=== PATIENT | female | born 1950 | race Caucasian/White ===

== ENCOUNTER → 2021-07-03 10:52 | Outpatient (BNVA) | payer MEDICARE, SELFPAY | PROVIDERS: PCP Nurse Practitioner Gerontology; Visit Provider Nurse Practitioner Family | DX: B02.29 Other postherpetic nervous system involvement (principal); M79.7 Fibromyalgia; R25.1 Tremor, unspecified | CPT/HCPCS: 99202 ==

== ENCOUNTER → 2021-08-07 14:17 | Outpatient (BNVA) | payer MEDICARE, SELFPAY | PROVIDERS: PCP Nurse Practitioner Gerontology; Visit Provider Nurse Practitioner Family | DX: R25.1 Tremor, unspecified (principal); B02.29 Other postherpetic nervous system involvement | CPT/HCPCS: 99212 ==

== ENCOUNTER → 2021-11-09 13:56 | Outpatient (BNVA) | payer MEDICARE, SELFPAY | PROVIDERS: PCP Nurse Practitioner Gerontology; Visit Provider Nurse Practitioner Family | DX: R51.9 Headache, unspecified (principal); B02.29 Other postherpetic nervous system involvement; E78.5 Hyperlipidemia, unspecified; Z79.899 Other long term (current) drug therapy | CPT/HCPCS: 99212 ==

== ENCOUNTER 2021-11-19 13:56 | Outpatient (REF) | payer MEDICARE, SELFPAY ==
[2021-11-19 14:26] LABS: MANUAL DIFF FLAG NO
[2021-11-19 14:39] LABS: Basophils Absolute Auto 0.1 X10*3/uL (0.0-0.2); Basophils Percent Auto 0.8 % (0-2); Eosinophils Absolute Auto 0.2 X10*3/uL (0.0-0.4); Eosinophils Percent Auto 2.3 % (0-4); Hemoglobin 15.1 g/dl (12.0-16.0); Lymphocytes Absolute Auto 2.3 X10*3/uL (1.2-4.9); Lymphocytes Percent Auto 31.2 % (20-40); Mean Corpuscular HGB Conc 32.8 g/dl (31.0-35.0); Mean Corpuscular Hemoglobin 29.9 pg (27.0-33.0); Mean Corpuscular Volume 91.1 fL (80.0-98.0); Mean Platelet Volume 10.6 fL (9.4-12.3); Monocytes Absolute Auto 0.6 X10*3/uL (0.1-1.2); Monocytes Percent Auto 7.6 % (2-11); Neutrophils Absolute Auto 4.4 x10*3/uL (2.0-8.3); Neutrophils Percent Auto 58.1 % (45-73); Platelet Count 258 X10*3/uL (160-400); Red Blood Count 5.05 X10*6/uL (4.20-5.50); White Blood Count 7.5 X10*3/uL (4.8-10.8)
[2021-11-19 15:36] LABS: Erythrocyte Sedimentation Rate 13 MM/HR (0-20)
[2021-11-19 15:46] LABS: Alanine Aminotransferase 28 U/L (0-31); Albumin Level 4.3 g/dL (3.5-5.0); Alkaline Phosphatase 85 U/L (39-117); Anion Gap 17 (12-20); Aspartate Amino Transferase 28 U/L (5-31); Bilirubin Total 0.7 mg/dL (0.0-1.0); Blood Urea Nitrogen 11 mg/dL (9-16); Calcium 9.6 mg/dL (8.4-10.2); Carbon Dioxide 25 mmol/L (22-29); Chloride 102 mmol/L (96-108); Estimated Glomerular Filt Rate 46; Glucose Random 84 mg/dL (60-115); Sodium 139 mmol/L (135-145); Total Protein 7.2 g/dL (6.5-8.0)
[2021-11-21 14:17] LABS: CRP High Sensitivity 1.8 mg/L
== END 2021-11-19 13:57 | disposition home or self-care (01) ==
LOC: HO.LAB 13:56
PROVIDERS: Visit Provider Nurse Practitioner Family
DX: E78.5 Hyperlipidemia, unspecified (principal); R51.9 Headache, unspecified; B02.29 Other postherpetic nervous system involvement
CPT/HCPCS: 36415; 80053; 85025; 85652; 86141

== ENCOUNTER 2023-03-10 13:44 | Outpatient (AMB) | payer MEDICARE, SELFPAY ==
--- NOTE | 2023-03-10 13:48 | MHC.OFFVIS ---
Intake Vital Signs 03/10/23 13:50 Height 5 ft 3 in Weight 153 lb 2 oz BMI 27.1 BP 118/74 Blood Pressure Location Rt brachial Position Sitting Pulse 98 Pulse Source Pulse Oximeter Pulse Oximetry (%) 99 Oxygen Delivery Method Room Air Intake Visit Reasons: f/u for postherpetic Neuralgia-Confirmed Intake Note: Patient presents for prosthetic neuralgia. my legs and feet mainly but in the last past year I've been getting vertigo . Allergies codeine Allergy (Unknown, Verified 03/10/23 13:51) Gastrointestinal Upset furosemide [Lasix] Allergy (Unknown, Verified 03/10/23 13:51) Anaphylaxis Medication List - Last Reconciled 03/10/23 by LESTER Wells alendronate 70 mg PO QWEEK azelaic acid 15% 1 appl topical BID calcium carbonate-vitamin D2 600 mg calcium- 200 unit tabs PO cetirizine 10 mg PO DAILY lidocaine 5% 1 appl topical TID PRN 30 days lorazepam 1 mg PO BEDTIME PRN nortriptyline 50 mg PO BEDTIME nystatin-triamcinolone 100,000-0.1 unit/g-% 1 appl topical DAILY pantoprazole 40 mg PO DAILY pravastatin 20 mg PO DAILY HPI HPI Comments History of Present Illness Details 73-yr-old female presents for new concern of BLE pain/numbness and vertigo. 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 She was recently advsed to start Eliquis but has not started yet. Pt states she has had vertigo on and off for years. However, during the [place] in Sep, she had increased bothersome vertigo. The vertigo has subsided some, but she can still be prone to not right in space dizziness which can come when just sitting. She can have some tinnitus. Denies ear pain, ear infections. She also reports worsening BLE thighs through feet discomfort and numbness. She can feel the ground when she is walking. Her legs can feel weak when she has to pull herself up. The previous postherpetic neuralgia has resolved- although she can still feel where the rash was in her posterior right hamstring region. She has a BUE tremor, notes it has increased over the years. Can make some tasks more difficult. [facility] Medical History (Updated 03/10/23 @ 22:02 by LESTER Wells) GERD (gastroesophageal reflux disease) Depression HLD (hyperlipidemia) Carpal tunnel syndrome Dupuytren contracture Duodenal ulcer Chronic narrow angle glaucoma Raynauds syndrome Fibromyalgia Boucher syndrome Uterine cancer Surgical History History of hysterectomy for cancer History of nasal surgery Family History Father CAD (coronary artery disease) Mother No problems noted. Social History Household Members: Family Alcohol intake: never Patient Tobacco Use Status: Former Tobacco user Review of Systems Const All systems reviewed & are unremarkable except as noted in HPI and below Physical Exam Vital Signs: Last Vital Signs Pulse 98 03/10/23 13:50 BP 118/74 03/10/23 13:50 Pulse Ox 99 03/10/23 13:50 Oxygen Delivery Method Room Air 03/10/23 13:50 BMI result Body Mass Index 27.1 Const General: cooperative and no acute distress Orientation/consciousness: patient oriented x3 HEENT Head: Yes normocephalic Resp Effort & Inspection: normal respiratory effort and able to speak in complete sentences Neuro Other: LUE rest and BUE L > R postural tremor. Mild LUE tone Softer, hoarse voice General: patient oriented x3, gait normal and CN's II-XI intact bilaterally Cognition (Neuro): normal cognition Motor exam (neuro): 5/5 motor strength present throughout Deep tendon reflexes (DTR's): Right patellar reflex intensity grade: 2+ and Left patellar reflex intensity grade: 2+ Psych Appearance: grossly normal Mental Status: mental status grossly normal Speech and movement: Normal speech and movement present Affect: normal affect Attitude: cooperative Thought process: Normal thought process present Thought content: Normal thought content present Insight: Good insight present (Psych) Judgement: Good judgement present (Psych) Assessment & Plan Assessment & Plan (1) Paresthesia of bilateral legs: Code(s): R20.2 - Paresthesia of skin (2) Postherpetic neuralgia: Comment: Lumbar region to posterior left upper-mid thigh s/p shingles in Jan 2021. Code(s): B02.29 - Other postherpetic nervous system involvement (3) Vertigo: Code(s): R42 - Dizziness and giddiness (4) Intracranial arachnoid cyst: Code(s): G93.0 - Cerebral cysts Plan Pt advised to undergo BLE EMG/NCS Pt advised to undergo f/u brain MRI w/wo to assess status of left CP angle arachnoid cyst and worsening vertigo. Labs for common etiologies. Monitor tremor. f/u upon review of above and in 3 months in clinic or sooner prn Orders: Orders MR head/brain wo/w con Today G93.0 - Cerebral cysts, R42 - Dizziness and giddiness Vitamin B12 and Folate Today R20.2 - Paresthesia of skin, R42 - Dizziness and giddiness, R53.1 - Weakness Creatine Kinase Total Today R20.2 - Paresthesia of skin, R42 - Dizziness and giddiness, R53.1 - Weakness NE electromyogram (EMG) Today B02.29 - Other postherpetic nervous system involvement, R20.2 - Paresthesia of skin, R53.1 - Weakness Complete Blood Count Auto Diff Today R20.2 - Paresthesia of skin, R42 - Dizziness and giddiness, R53.1 - Weakness Comprehensive Met. Panel Today R20.2 - Paresthesia of skin, R42 - Dizziness and giddiness, R53.1 - Weakness Coding Level of Care Code Est Pt Level 4 (37224) Diagnoses Paresthesia of bilateral legs R20.2 Postherpetic neuralgia B02.29 Vertigo R42 Intracranial arachnoid cyst G93.0
[2023-03-10 13:50] VITALS: BP 118/74; PULSE 98; O2SAT 99; BMI 27.1
== END 2023-03-10 14:56 | disposition home or self-care (01) ==
PROVIDERS: PCP Nurse Practitioner Gerontology; Visit Provider Nurse Practitioner Family
DX: R20.2 Paresthesia of skin (principal); B02.29 Other postherpetic nervous system involvement; R42 Dizziness and giddiness; G93.0 Cerebral cysts
CPT/HCPCS: 99214

== ENCOUNTER → 2023-03-10 13:44 | Outpatient (BNVA) | payer MEDICARE, SELFPAY | PROVIDERS: PCP Nurse Practitioner Gerontology; Visit Provider Nurse Practitioner Family | DX: B02.29 Other postherpetic nervous system involvement (principal); R20.2 Paresthesia of skin; R42 Dizziness and giddiness; G93.0 Cerebral cysts | CPT/HCPCS: 99212 ==

== ENCOUNTER 2023-04-22 14:14 | Outpatient (REF) | payer MEDICARE, SELFPAY ==
--- NOTE | 2023-04-22 14:18 | EMG_ITS ---
Chief complaint: Chronic numbness on feet and toes, dating even prior to onset of post herpetic neuralgia Reason for referral: Evaluate for neuropathy Referred by: Nicole Zuniga CROP DUSTER Procedure done: Bilateral lower extremity NCS/EMG Precautions and/or limitations: On Eliquis - had to avoid deep muscles such as paraspinals The limb temperature was monitored continuously and remained between 32-36 degrees C during the performance of the NCS. Nerve Conduction Studies Anti Sensory Summary Table ?Stim Site NR Onset (ms) Norm Onset (ms) Peak (ms) Norm Peak (ms) O-P Amp (?V) Norm O-P Amp Site1 Site2 Delta-0 (ms) Dist (cm) Kenji (m/s) Norm Kenji (m/s) Left Sural Anti Sensory (Lat Mall) Calf ? 2.5 3.5 <4.0 13.1 >5.0 Calf Lat Mall 2.5 14.0 56 Right Sural Anti Sensory (Lat Mall) Calf ? 3.1 3.8 <4.0 6.2 >5.0 Calf Lat Mall 3.1 14.0 45 Motor Summary Table ?Stim Site NR Onset (ms) Norm Onset (ms) O-P Amp (mV) Norm O-P Amp iAmp (mV) Amp (1st) (%) Site1 Site2 Delta-0 (ms) Dist (cm) Kenji (m/s) Norm Kenji (m/s) Right Peroneal Motor (Ext Dig Brev) Ankle ? 3.6 <4.0 3.3 >2.5 3.8 100.0 Ankle Ext Dig Brev 3.6 0.0 B Fib ? 10.5 2.9 3.2 87.9 B Fib Ankle 6.9 31.0 45 >40 Poplt ? 11.6 2.9 3.3 87.9 Poplt B Fib 1.1 5.0 45 >40 Left Tibial Motor (Abd Alonso Brev) Ankle ? 4.3 <5 6.0 >2.5 7.7 100.0 Ankle Abd Alonso Brev 4.3 0.0 Knee ? 12.4 5.4 7.8 90.0 Knee Ankle 8.1 34.0 42 >40 Right Tibial Motor (Abd Alonso Brev) Ankle ? 4.1 <5 6.7 >2.5 8.2 100.0 Ankle Abd Alonso Brev 4.1 0.0 Knee ? 12.9 5.9 7.7 88.1 Knee Ankle 8.8 40.0 45 >40 EMG ?Side Muscle Nerve Root Ins Act Fibs Psw Amp Dur Poly Recrt Int Pat Comment Right AbdHallucis MedPlantar S1-2 Nml Nml Nml Nml Nml 0 Nml Complete Right AntTibialis Dp Br Peron L4-5 Nml Nml Nml Nml Nml 0 Nml Complete Right MedGastroc Tibial S1-2 Nml Nml Nml Nml Nml 0 Nml Complete Right VastusMed Femoral L2-4 Nml Nml Nml Nml Nml 0 Nml Complete Left AbdHallucis MedPlantar S1-2 Nml Nml Nml Nml Nml 0 Nml Complete Left AntTibialis Dp Br Peron L4-5 Nml Nml Nml Nml Nml 0 Nml Complete Left MedGastroc Tibial S1-2 Nml Nml Nml Nml Nml 0 Nml Complete Left VastusMed Femoral L2-4 Nml Nml Nml Nml Nml 0 Nml Complete Left RectFemoris Femoral L2-4 Nml Nml Nml Nml Nml 0 Nml Complete Right RectFemoris Femoral L2-4 Nml Nml Nml Nml Nml 0 Nml Complete FINDINGS: All motor and sensory nerves tested showed normal latencies, amplitudes and conduction velocities. Concentric needle EMG was performed in selected muscles of the bilateral lower extremity. Study did not reveal signs of electric abnormalities as shown in the table below. IMPRESSION: 1. This is a normal study. 2. There is no electrodiagnostic evidence for peroneal neuropathy, tibial neuropathy, lumbosacral plexopathy, lumbar radiculopathy, or peripheral neuropathy. Thank you for your kind referral. Maggie Artis MD, BEV Board Certified, [place] [employer] and [employer] (ABPMR) Board Certified, [place] Board [employer] Electro[employer]ostic [employer] (ABEM) CODIN [id number] x 2 MTDD
== END 2023-04-22 14:15 | disposition home or self-care (01) ==
LOC: HO.NEURO 14:14
PROVIDERS: PCP Nurse Practitioner Gerontology; Visit Provider Nurse Practitioner Family
DX: R20.2 Paresthesia of skin (principal); B02.29 Other postherpetic nervous system involvement; R53.1 Weakness
CPT/HCPCS: 95886; 95909

== ENCOUNTER → 2023-04-22 14:18 | Outpatient (BNV) | payer MEDICARE, SELFPAY | PROVIDERS: PCP Nurse Practitioner Gerontology; Visit Provider Physical Medicine & Rehabilitation | DX: G57.91 Unspecified mononeuropathy of right lower limb (principal); G57.92 Unspecified mononeuropathy of left lower limb | CPT/HCPCS: 95886; 95909 ==

== ENCOUNTER 2023-07-14 14:23 | Outpatient (AMB) | payer MEDICARE, SELFPAY ==
[2023-07-14 14:27] VITALS: BP 130/78; PULSE 90; O2SAT 9
--- NOTE | 2023-07-14 14:27 | A.OFFVIS_ITS ---
Vital Signs 07/14/23 14:27 BP 130/78 Blood Pressure Location Rt brachial Position Sitting Pulse 90 Pulse Source Pulse Oximeter Pulse Oximetry (%) 9 L Oxygen Delivery Method Room Air Intake Visit Reasons: 4 mo f/u Postherpetic Neuralgia- LVM Intake Note: Patient presents for 4 month follow up neuralgia. Allergies codeine Allergy (Unknown, Verified 07/14/23 14:29) Gastrointestinal Upset furosemide [Lasix] Allergy (Unknown, Verified 07/14/23 14:29) Anaphylaxis Medication List - Last Reconciled 07/14/23 by LESTER Wells alendronate 70 mg PO QWEEK apixaban (Eliquis) 2.5 mg PO BID azelaic acid 15% 1 appl topical BID calcium carbonate-vitamin D2 600 mg calcium- 200 unit tabs PO cetirizine 10 mg PO DAILY lidocaine 5% 1 appl topical TID PRN 30 days lorazepam 1 mg PO BEDTIME PRN nortriptyline 50 mg PO BEDTIME nystatin-triamcinolone 100,000-0.1 unit/g-% 1 appl topical DAILY pantoprazole 40 mg PO DAILY pravastatin 20 mg PO DAILY HPI Comments Details: 73-yr-old female presents for f/u visit. Patient wants to confirm that we are aware that she has had recent diagnoses of splenic artery infarct, factor V Leiden mutation. She was seen by [facility] hematology, who advised patient to resume Eliquis, in to be evaluated for AFib. Patient has no known history of AFib. She was also seen by Nephrology, Dr. Stuart, for elevated creatinine, states she was diagnosed with CKD stage 3. Patient today reminds us that she has history of Raynaud's, carpal tunnel repair, Dupuytren's repair. Interval workup: 04/22/23: BLE EMG/NCS: Normal study. There is no electrodiagnostic evidence for peroneal neuropathy, tibial neuropathy, lumbosacral plexopathy, lumbar radiculopathy, or peripheral neuropathy. 04/05/23, Brain w/wo: IMPRESSION: 1. No acute intracranial pathology. 2. There is a stable collection of CSF in the left CP angle. A similar but smaller collection is seen in the right CP angle. These may represent small arachnoid cysts or could simply represent volume loss. She states her hands and toes get numb, sometimes tingling, and her legs hurt, more noticeable at night. Worse in the cold weather. Fingertips and toes turn red and then purple, especially when it is cold. Denies urge to move at night. Hands do feel weak, prone to dropping things. Occasionally has sharp pain in he right cheek. Occasionally brief head spinning dizziness w/wo head movement. If it occurred when walking, she will need to garb onto something. Occasional brief tinnitus. Occasional mild headache that responds to OTC analgesic. [facility] Medical History (Updated 07/14/23 @ 15:33 by LESTER Wells) GERD (gastroesophageal reflux disease) Depression HLD (hyperlipidemia) Carpal tunnel syndrome Dupuytren contracture Duodenal ulcer Chronic narrow angle glaucoma Raynauds syndrome Fibromyalgia Boucher syndrome Uterine cancer Surgical History History of hysterectomy for cancer History of nasal surgery Family History Father CAD (coronary artery disease) Mother No problems noted. Social History Household Members: Family Alcohol intake: never Patient Tobacco Use Status: Former Tobacco user Review of Systems Const All systems reviewed & are unremarkable except as noted in HPI and below Physical Exam Vital Signs: Last Vital Signs Pulse 90 07/14/23 14:27 BP 130/78 07/14/23 14:27 Pulse Ox 9 L 07/14/23 14:27 Oxygen Delivery Method Room Air 07/14/23 14:27 Const General: cooperative and no acute distress Orientation/consciousness: patient oriented x3 HEENT Head: Yes normocephalic Resp Effort & Inspection: normal respiratory effort and able to speak in complete sentences Neuro Other: Mild left upper extremity postural tremor General: patient oriented x3, gait normal and CN's II-XI intact bilaterally Cognition (Neuro): normal cognition Motor exam (neuro): 5/5 motor strength present throughout Extrem Other: Bilateral hands and feet coolness to touch, mild discoloration, slow capillary refill. Psych Appearance: grossly normal Mental Status: mental status grossly normal Speech and movement: Clear speech present Affect: normal affect Attitude: cooperative Thought process: Normal thought process present Thought content: Normal thought content present Insight: Good insight present (Psych) Judgement: Good judgement present (Psych) Assessment & Plan Assessment & Plan (1) Raynauds syndrome: Code(s): I73.00 - Raynaud's syndrome without gangrene Category: Medical (2) Injury of splenic artery: Comment: splenic artery infarct Code(s): S35.299A - Unspecified injury of branches of celiac and mesenteric artery, initial encounter Category: Medical (3) Vertigo: Code(s): R42 - Dizziness and giddiness Category: Medical (4) Intracranial arachnoid cyst: Code(s): G93.0 - Cerebral cysts Category: Medical (5) Postherpetic neuralgia: Comment: Lumbar region to posterior left upper-mid thigh s/p shingles in Jan 2021. Code(s): B02.29 - Other postherpetic nervous system involvement Category: Medical (6) Tremor: Code(s): R25.1 - Tremor, unspecified Category: Medical Plan Reviewed recent PCP and Hematology notes. Will take the liberty of referring patient for Cardiology consultation at [facility] to evaluate patient for underlying asymptomatic AFib. In the meantime, continue on Eliquis. Reviewed BLE EMG/NCS: Normal study. Trial nifedipine ER 30 mg daily, in hopes this improves Raynaud symptoms, which may alleviate her hand and foot discomfort his recent EMG did not show any neuropathy. Advised to monitor for orthostatic lightheadedness. Patient against advised to have labs done for B12 and folate. Reviewed Brain MRI w/wo report and images: Stable collection of CSF in the left CP angle. A similar but smaller collection is seen in the right CP angle. Likely small arachnoid cysts or could simply represent volume loss. Monitor dizziness, headache and tinnitus clinically. If these worsen, consider follow-up brain MRI and consider neurosurgeon referral. Monitor tremor clinically. Orders: Referrals Cardiology Referral D68.51 - Activated protein C resistance, I73.00 - Raynaud's syndrome without gangrene, S35.299A - Unspecified injury of branches of celiac and mesenteric artery, initial encounter Medications: New nifedipine ER 30 mg PO DAILY 30 days 30 tabs 3RF Scribe Plan - Not visible on output: Reviewed possible medication side effects, including but not limited to drowsiness, dizziness.
== END 2023-07-14 15:32 | disposition home or self-care (01) ==
PROVIDERS: PCP Nurse Practitioner Gerontology; Visit Provider Nurse Practitioner Family
DX: I73.00 Raynaud's syndrome without gangrene (principal); S35.299A Unspecified injury of branches of celiac and mesenteric artery, initial encounter; R42 Dizziness and giddiness; G93.0 Cerebral cysts; B02.29 Other postherpetic nervous system involvement; R25.1 Tremor, unspecified
CPT/HCPCS: 99214

== ENCOUNTER 2023-07-14 15:35 | Outpatient (REF) | payer MEDICARE, SELFPAY ==
[2023-07-14 17:19] LABS: MANUAL DIFF FLAG NO
[2023-07-14 17:33] LABS: Basophils Absolute Auto 0.1 X10*3/uL (0.0-0.2); Basophils Percent Auto 0.6 % (0-2); Eosinophils Absolute Auto 0.2 X10*3/uL (0.0-0.4); Eosinophils Percent Auto 2.4 % (0-4); Hematocrit 45.9 % (37.0-47.0); Hemoglobin 15.4 g/dl (12.0-16.0); Imm Gran Abs Auto 0.02 X10*3/uL (0.00-0.03); Imm Gran Pct Auto 0.2 % (0.0-0.4); Lymphocytes Absolute Auto 2.8 X10*3/uL (1.2-4.9); Lymphocytes Percent Auto 31.8 % (20-40); Mean Corpuscular HGB Conc 33.6 g/dl (31.0-35.0); Mean Corpuscular Hemoglobin 30.9 pg (27.0-33.0); Monocytes Absolute Auto 0.7 X10*3/uL (0.1-1.2); Monocytes Percent Auto 8.4 % (2-11); Neutrophils Absolute Auto 4.9 x10*3/uL (2.0-8.3); Neutrophils Percent Auto 56.6 % (45-73); Platelet Count 244 X10*3/uL (160-400); Red Blood Count 4.99 X10*6/uL (4.20-5.50); Red Cell Distribution Width 14.2 % (11.0-16.0); White Blood Count 8.7 X10*3/uL (4.8-10.8)
[2023-07-14 17:36] LABS: Alanine Aminotransferase 36 U/L (0-31); Albumin Level 4.3 g/dL (3.5-5.0); Alkaline Phosphatase 78 U/L (39-117); Anion Gap 12 (12-20); Aspartate Amino Transferase 29 U/L (5-31); Bilirubin Total 0.6 mg/dL (0.0-1.0); Blood Urea Nitrogen 17 mg/dL (9-16); Calcium 10.2 mg/dL (8.4-10.2); Carbon Dioxide 27 mmol/L (22-29); Chloride 107 mmol/L (96-108); Estimated Glomerular Filt Rate 43; Glucose Random 96 mg/dL (60-115); Potassium 4.4 mmol/L (3.3-5.1); Sodium 142 mmol/L (135-145); Total Protein 7.9 g/dL (6.5-8.0)
[2023-07-14 18:26] LABS: Folate 13.6 ng/mL (> or = 4.0); Vitamin B12 789 pg/mL (200-900)
== END 2023-07-14 15:36 | disposition home or self-care (01) ==
LOC: HO.HKASLDS 15:35
PROVIDERS: Visit Provider Nurse Practitioner Family
DX: R20.2 Paresthesia of skin (principal); R53.1 Weakness; R42 Dizziness and giddiness; D68.51 Activated protein C resistance
CPT/HCPCS: 36415; 80053; 82550; 82607; 82746; 85025; 99212

== ENCOUNTER 2024-01-18 14:21 | Outpatient (AMB) | payer MEDICARE, SELFPAY ==
--- NOTE | 2024-01-18 14:23 | MHC.OFFVIS ---
Vital Signs 01/18/24 14:25 Height 5 ft 3 in Weight 153 lb BMI 27.1 BP 138/70 Blood Pressure Location Rt brachial Position Sitting Intake Visit Reasons: Follow up Postherpetic Neuralgia Intake Note: Patient presents for follow up neuralgia. patient wants to discuss with you other options. Allergies codeine Allergy (Unknown, Verified 01/18/24 14:26) Gastrointestinal Upset furosemide [Lasix] Allergy (Unknown, Verified 01/18/24 14:26) Anaphylaxis Medication List - Last Reconciled 01/18/24 by LESTER Wells alendronate 70 mg PO QWEEK apixaban (Eliquis) 2.5 mg PO BID azelaic acid 15% 1 appl topical BID calcium carbonate-vitamin D2 600 mg calcium- 200 unit tabs PO cetirizine 10 mg PO DAILY lidocaine 5% 1 appl topical TID PRN 30 days lorazepam 1 mg PO BEDTIME PRN nifedipine ER 30 mg PO DAILY 30 days nortriptyline 50 mg PO BEDTIME nystatin-triamcinolone 100,000-0.1 unit/g-% 1 appl topical DAILY pantoprazole 40 mg PO DAILY pravastatin 20 mg PO DAILY HPI Comments Details: 73-yr-old female presents for f/u visit. Pt reports she was recently started on prednisone for a URI. She states nephrology, Dr. Stuart, has dx'd w/ CKD St 3A- thus he has stopped her nifedipindine, pantoprazole, and reduced her alendronate dose. Has had an increase in acid reflux s/s- now using pepto-bismal instead of the pantoprazole for her GERD s/s. Patient wants to confirm that we are aware that she has had recent diagnoses of splenic artery infarct, factor V Leiden mutation. She was seen by [facility] hematology, who advised patient to resume Eliquis, in to be evaluated for AFib. Patient has no known history of AFib. She was also seen by Nephrology, Dr. Stuart, for elevated creatinine, states she was diagnosed with CKD stage 3. Patient today reminds us that she has history of Raynaud's, carpal tunnel repair, Dupuytren's repair. She does not think the nifedipine was very helpful. She states she has leg and foot/toe cramps at night. Her feet can feel like they are on fire/burning. She states her hands and now feet (was toes) get numb and tingling. Fingertips and toes turn red and then purple, especially when it is cold. She is noticing restless and creepy crawling sensation in he legs- happens all the time. Legs are usually worse when in cold weather. Hands do feel weak, prone to dropping things. May use Tylenol rpn at times for the foot pain. Massaging he rlegs helps best. No recent sharp pain in he right cheek. Not as dizzy but careful not to move to fast, as it make her feel off-balance. Occasional brief tinnitus. Occasional mild headache that responds to OTC analgesic. Previous workup: 04/22/23: BLE EMG/NCS: Normal study. There is no electrodiagnostic evidence for peroneal neuropathy, tibial neuropathy, lumbosacral plexopathy, lumbar radiculopathy, or peripheral neuropathy. 04/05/23, Brain w/wo: IMPRESSION: 1. No acute intracranial pathology. 2. There is a stable collection of CSF in the left CP angle. A similar but smaller collection is seen in the right CP angle. These may represent small arachnoid cysts or could simply represent volume loss. [facility] Medical History GERD (gastroesophageal reflux disease) Depression HLD (hyperlipidemia) Carpal tunnel syndrome Dupuytren contracture Duodenal ulcer Chronic narrow angle glaucoma Raynauds syndrome Fibromyalgia Boucher syndrome Uterine cancer Surgical History History of hysterectomy for cancer History of nasal surgery Family History Father CAD (coronary artery disease) Mother No problems noted. Social History Household Members: Family Alcohol intake: never Patient Tobacco Use Status: Former Tobacco user Physical Exam Vital Signs: Last Vital Signs BP 138/70 01/18/24 14:25 BMI result Body Mass Index 27.1 Const General: cooperative and no acute distress Orientation/consciousness: patient oriented x3 HEENT Head: Yes normocephalic Resp Effort & Inspection: normal respiratory effort and able to speak in complete sentences Neuro Other: Mild left upper extremity postural tremor General: patient oriented x3, gait normal and CN's II-XI intact bilaterally Cognition (Neuro): normal cognition Motor exam (neuro): 5/5 motor strength present throughout Psych Appearance: grossly normal Mental Status: mental status grossly normal Speech and movement: Clear speech present Affect: normal affect Assessment & Plan Assessment & Plan (1) Raynauds syndrome: Code(s): I73.00 - Raynaud's syndrome without gangrene Category: Medical (2) Vertigo: Code(s): R42 - Dizziness and giddiness Category: Medical (3) Tremor: Code(s): R25.1 - Tremor, unspecified Category: Medical (4) Restless leg syndrome: Code(s): G25.81 - Restless legs syndrome Category: Medical (5) Paresthesia of bilateral legs: Code(s): R20.2 - Paresthesia of skin Category: Medical Plan Advised she may try OTC Pepcid for gastritis but once s/s better to slowly wean off. Take prednisone course for URI w/ food to prevent exacerbation of gastritis/GERD s/s. Pt would like to hold on trying yanelis medication at this time. Reviewed conservative OZTZC tretaments for BLE restless leg and paresthesia s/s- compression boots, compression socks- such as hiking/running socks, RLS/neuropathy creams/lotions, stretching prior to bedtime. Previous BLE EMG/NCS: Normal study. Pt has stopped nifedipine ER 30 mg daily- per nephrology, was not very effective. Patient against advised to have labs done for B12 and folate. Brain MRI w/wo report and images: Stable collection of CSF in the left CP angle. A similar but smaller collection is seen in the right CP angle. Likely small arachnoid cysts or could simply represent volume loss. Monitor dizziness, headache and tinnitus clinically. If these worsen, consider follow-up brain MRI and consider neurosurgeon referral. Monitor tremor clinically. Medications: Discontinued nifedipine ER Discontinued Reason: Doctor's Order 30 mg PO DAILY 30 days 30 tabs 3RF Coding Level of Care Code Est Pt Level 4 (23892) Diagnoses Raynauds syndrome I73.00 Vertigo R42 Tremor R25.1 Restless leg syndrome G25.81 Paresthesia of bilateral legs R20.2
[2024-01-18 14:25] VITALS: BP 138/70; BMI 27.1
== END 2024-01-18 15:28 | disposition home or self-care (01) ==
PROVIDERS: PCP Nurse Practitioner Gerontology; Visit Provider Nurse Practitioner Family
DX: I73.00 Raynaud's syndrome without gangrene (principal); R42 Dizziness and giddiness; R25.1 Tremor, unspecified; G25.81 Restless legs syndrome; R20.2 Paresthesia of skin
CPT/HCPCS: 99214

== ENCOUNTER → 2024-01-18 14:21 | Outpatient (BNVA) | payer MEDICARE, SELFPAY | PROVIDERS: PCP Nurse Practitioner Gerontology; Visit Provider Nurse Practitioner Family | DX: I73.00 Raynaud's syndrome without gangrene (principal); R25.1 Tremor, unspecified; R42 Dizziness and giddiness; R20.2 Paresthesia of skin; G25.81 Restless legs syndrome | CPT/HCPCS: 99212 ==

== ENCOUNTER 2024-08-06 14:11 | Outpatient (AMB) | payer MEDICARE, SELFPAY ==
--- OUTSIDE RECORDS SUMMARY | 2024-08-06 14:26 | XMS_ITS | Clinical Summary ---
Author Organization [facility] Address [address] [address] Phone Care Team Providers Care Upholstery Parts Sorter Name Role Phone Cheryl Mccain NP Primary Care Provider [phone] Allergies Active Allergy Reactions Criticality Noted Date Comments Codeine 06/08/2023 Furosemide 06/08/2023 (LASIX) Sulfa Antibiotics 06/08/2023 Medications alendronate (FOSAMAX) 70 MG tablet Take 70 mg by mouth every 7 (seven) days Take in the morning with a full glass of water, on an empty stomach, and do not take anything else by mouth or lie down for the next 30 min. Active AZELAIC ACID EX Apply 1 application. topically in the morning and 1 application. in the evening. After skin is thoroughly washed and patted dry, gently but thoroughly massage a thin film of azelaic acid cream into the affected area twice daily, in the morning and evening. 15%. Active calcium carbonate (TUMS) 500 MG chewable tablet Chew 1 tablet 1 (one) time each day Active cetirizine (ZyrTEC) 10 MG tablet Take 10 mg by mouth 1 (one) time each day Active apixaban (Eliquis) 2.5 MG tablet Take 2.5 mg by mouth in the morning and 2.5 mg in the evening. 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 [address] [place] [phone] Doe Sommer MD Stage 3a chronic kidney disease (HCC) (Primary Dx); Boucher syndrome; Factor V Leiden mutation (HCC); Anticoagulant therapy; Osteoporosis 06/05/2024 Orders Only [facility] [address] [phone] Doe Sommer MD Stage 3a chronic kidney disease (HCC); Boucher syndrome; Factor V Leiden mutation (HCC); Anticoagulant therapy from Last 3 Months Family History Medical History Relation Comments Cancer Brother 1 lung Cancer Brother 2 skin Hypertension Father Cancer Maternal Grandmother breast Relation Status Comments Brother 1 Brother 2 Alive Father Maternal Grandmother Social History Tobacco Use Types Packs/Day Years Used Date Smoking Tobacco: Former Cigarettes Smokeless Tobacco: Never Tobacco Cessation:Counseling Given: Not Answered Alcohol Use Standard Drinks/Week Comments Not Currently 0 (1 standard drink = 0.6 oz pur e alcohol) Comments Unknown Sex and Gender Information Value Date Recorded Sex Assigned at Not on file Legal Sex Female 11:22 AM EST Gender Identity Not on file Sexual Orientation Not on file Last Filed Vital Signs Vital Sign Reading Time Taken Comments Blood Pressure 140/82 06/05/2024 11:41 AM EDT Pulse 106 06/05/2024 11:41 AM EDT Temperature - - Respiratory Rate - - Oxygen Saturation 99% 06/05/2024 11:41 AM EDT Inhaled Oxygen Concentration - - Weight 69 kg (152 lb 3.2 oz) 06/05/2024 11:41 AM EDT Height 160 cm (5' 3 ) 12/07/2023 11:47 AM EDT Body Mass Index 26.96 12/07/2023 11:47 AM EDT Plan of Treatment Upcoming Encounters Date Type Department Care Team (Late st Contact Info) Description 12/06/2024 10:20 AM EDT Office Visit [facility] [address] [address] Doe Sommer MD [address] [address] Health Maintenance Due Date Last Done Comments Hepatitis B Vaccine (2 of 3 - Hep B Twinrix 3-dose series) 11/25/2020 10/28/2020 Influenza Vaccine (Season Ended) 2024 01/05/20 20, 01/19/2019 Pneumococcal Vaccine: 50+ Years Completed 9, 04/26/2017 Procedures Procedure Name Priority Date/Time Associated Diagnosis Comments PTH, INTACT Routine 05/28/2024 1:25 PM EST MAGNESIUM Routine 05/28/2024 1:25 PM EST PHOSPHATE ( PHOSPHORUS) Routine 05/28/2024 1:25 PM EST URIC ACID Routine 05/28/2024 1:25 PM EST VITAMIN D 25 HYDROXY Routine 05/28/2024 1:25 PM EST PROTEIN / CREATININE RATIO, URINE Routine 05/28/2024 1:25 PM EST COMPREHENSIVE METABOLIC PANEL Routine 05/28/2024 1:25 PM EST CBC AND DIFFERENTIAL Routine 05/28/2024 1:25 PM EST from Last 3 Months Results * (ABNORMAL) Protein, Total, Random Urine w/Creatinine (Protein/Creat Ratio) (05/28/2024 1:25 PM EST) Creatinine, Ur 57.8 Not Estab. mg/dL [facility] Protein, Ur 12.6 Not Estab. mg/dL [facility] Urine Protein/Creati nine Ratio 218(H) 0 - 200 mg/g creat [facility] 05/28/2024 1:25 PM EST 05/28/2024 Doe Sommer MD LAB URINE ORDERABLES Final Re sult [facility] [address] [place] [address] * Vitamin D 25 Hydroxy (05/28/2024 1:25 PM EST) Vitamin D, 25-OH, Total 52.7 30.0 - 100.0 ng/mL [facility] Comment: Vitamin D deficiency has been defined by the [place] of Medicine and an Endocrine Society practice guideline as a level of serum 25-OH vitamin D less than 20 ng/mL (1,2). The Endocrine Society went on to further define vitamin D insufficiency as a level between 21 and 29 ng/mL (2). 1. IOM ([place] of Medicine). 2010. Dietary reference ?? intakes for calcium and D. [place]: The ?? National Academies Press. 2. Cristobal MF, Svetlana NC, Ashleigh BAUTISTA, et al. ?? Evaluation, treatment, and prevention of vitamin D ?? deficiency: an Endocrine Society clinical practice ?? guideline. JCEM. 2010; 96(7):1911-30. 05/28/2024 1:25 PM EST 05/28/2024 Doe Sommer MD LAB BLOOD ORDERABLES Final Re sult [facility] [address] [place] [address] * CBC and Differential (05/28/2024 1:25 PM EST) [facility] WBC 7.1 3.4 - 10.8 x10E3/uL [facility] RBC 4.74 3.77 - 5.28 x10E6/uL [facility] Hemoglobin 14.7 11.1 - 15.9 g/dL [facility] Hematocrit 44.2 34.0 - 46.6 % [facility] MCV 93 79 - 97 fL [facility] MCH 31.0 26.6 - 33.0 pg [facility] MCHC 33.3 31.5 - 35.7 g/dL [facility] RDW 13.0 11.7 - 15.4 % [facility] Platelets 250 150 - 450 x10E3/uL [facility] Neutrophils Relative 53 Not Estab. % [facility] Lymphocytes Relative 35 Not Estab. % [facility] Monocytes 9 Not Estab. % [facility] Eosinophils Relative 2 Not Estab. % [facility] Basophils Relative 1 Not Estab. % [facility] Neutrophils Absolute 3.8 1.4 - 7.0 x10E3/uL [facility] Lymphocytes Absolute 2.5 0.7 - 3.1 x10E3/uL [facility] Monocytes Absolute 0.6 0.1 - 0.9 x10E3/uL [facility] Eosinophils Absolute 0.1 0.0 - 0.4 x10E3/uL [facility] Basophils Absolute 0.1 0.0 - 0.2 x10E3/uL [facility] Immature Granulocytes 0 Not Estab. % [facility] Immature Grans (Absolute) 0.0 0.0 - 0.1 x10E3/uL [facility] 05/28/2024 1:25 PM EST 05/28/2024 Doe Sommer MD LAB BLOOD ORDERABLES Final Re sult [facility] [address] [place] [address] * Uric Acid (05/28/2024 1:25 PM EST) Pathologist [facility] Uric Acid 4.7 3.1 - 7.9 mg/dL [facility] Comment:Therapeutic target f or gout patients: <6.0 05/28/2024 1:25 PM EST 05/28/2024 Doe Sommer MD LAB BLOOD ORDERABLES Final Re sult Performing Organization Address [facility] Co de Phone Number [facility] [address] [place] [address] * Phosphorus (05/28/2024 1:25 PM EST) Phosphorus 3.8 3.0 - 4.3 mg/dL [facility] 05/28/2024 1:25 PM EST 05/28/2024 Doe Sommer MD LAB BLOOD ORDERABLES Final Re sult Performing Organization Address City/[facility] Co de Phone Number [facility] [address] [place] [address] * PTH, Intact (05/28/2024 1:25 PM EST) Pathologist [facility] PTH 41 15 - 65 pg/mL [facility] 05/28/2024 1:25 PM EST 05/28/2024 us Doe Sommer MD LAB BLOOD ORDERABLES Final Re sult Performing Organization Address City/[facility]/ZIP Co de Phone Number [facility] [address] [place] [address] * Magnesium (05/28/2024 1:25 PM EST) [facility] Magnesium 2.3 1.6 - 2.3 mg/dL [facility] 05/28/2024 1:25 PM EST 05/28/2024 Doe Sommer MD LAB BLOOD ORDERABLES Final Re sult Performing Organization Address [facility] Co de Phone Number [facility] [address] [place] [address] * (ABNORMAL) Comprehensive Metabolic Panel (05/28/2024 1:25 PM EST) [facility] Glucose 84 70 - 99 mg/dL [facility] BUN 22 8 - 27 mg/dL [facility] Creatinine 1.17(H) 0.57 - 1.00 mg/dL [facility] eGFR CKD-EPI CR 2020 48(L) >59 mL/min/1.7 3 [facility] BUN/Creatinine Ratio 19 12 - 28 [facility] Sodium 140 134 - 144 mmol/L [facility] Potassium 5.1 3.5 - 5.2 mmol/L [facility] Chloride 102 96 - 106 mmol/L [facility] Bicarbonate (CO2) 23 20 - 29 mmol/L [facility] Calcium 10.3 8.7 - 10.3 mg/dL [facility] Total Protein 6.8 6.0 - 8.5 g/dL [facility] Albumin 4.3 3.8 - 4.8 g/dL [facility] Globulin 2.5 1.5 - 4.5 g/dL [facility] Total Bilirubin 0.5 0.0 - 1.2 mg/dL [facility] Alkaline Phosphatase 72 44 - 121 IU/L [facility] AST (SGOT) 24 0 - 40 IU/L [facility] ALT (SGPT) 26 0 - 32 IU/L [facility] 05/28/2024 1:25 PM EST 05/28/2024 us Doe Sommer MD LAB BLOOD ORDERABLES Final Re sult [facility] [address] [place] [address] from Last 3 Months Insurance [facility] Medicare Medicare [facility] Care Teams Upholstery Parts Sorter Relationship Specialty Start Date End Date Cheryl Mccain NP [address] [place] [address] PCP - General Nurse Practitioner 04/06/23
--- OUTSIDE RECORDS SUMMARY | 2024-08-06 14:26 | XMS_ITS | Clinical Summary ---
Author Organization [facility] Address [address] [place] [address] Care Team Providers Care Geospatial Technician Name Role Phone Unavailable Primary Care Provider Unavailabl e Encounters Date Type Department Care Team Description 07/23/2024 Telephone Gastroenterology - [address] [place] [address] Augustin Jones MD from Last 3 Months Social History Tobacco Use Types Packs/Day Years Used Date Smoking Tobacco: Never Assessed Comments Unknown Sex and Gender Information Value Date Recorded Sex Assigned at Not on file Legal Sex Female 2:06 PM EST Gender Identity Not on file Sexual Orientation Not on file Plan of Treatment Health Maintenance Due Date Last Done Comments DTaP,Tdap,and Td Vaccines (1 - Tdap) 1969 Pneumococcal Vaccine: 50+ Ye ars (1 of 1 - PCV) 1998 Zoster Vaccines (1 of 2) 1998 Depression Screening 02/24/2022 Falls Risk Assessment 02/24/2022 Hepatitis C Screening 02/24/2022 Osteoporosis Screening (Bone Density Screening) 02/24/2022 Social Influencers of Health Screening 02/24/2022 RSV Immunization Adult Patie nts (1 - 1-dose 75+ series) 2023 COVID-19 Vaccine ( - 2023-2 5 season) 2023 Influenza Vaccine (Season Ended) 2024 HIB Vaccines Aged Out No longer eligi ble based on patient's age to complete this topic HPV Vaccines Aged Out No longer eligi ble based on patient's age to complete this topic Hepatitis A Vaccines Aged Out No long er eligible based on patient's age to complete this topic Hepatitis B Vaccines Aged Out No long er eligible based on patient's age to complete this topic IPV Vaccines Aged Out No longer eligi ble based on patient's age to complete this topic MMR Vaccines Aged Out No longer eligi ble based on patient's age to complete this topic Meningococcal ACWY Vaccine Aged Out N o longer eligible based on patient's age to complete this topic Meningococcal B Vaccine Aged Out No l onger eligible based on patient's age to complete this topic RSV Immunization Patients Un harvey 20 months Aged Out No longer eligible b ased on patient's age to complete this topic Varicella Vaccines Aged Out No longer eligible based on patient's age to complete this topic
[2024-08-06 14:45] VITALS: BP 130/70; PULSE 98; O2SAT 99; BMI 26.7
--- NOTE | 2024-08-06 14:45 | A.OFFVIS_ITS ---
Vital Signs 08/06/24 14:45 Height 5 ft 3 in Weight 151 lb BMI 26.7 BP 130/70 Blood Pressure Location Lt brachial Position Sitting Pulse 98 Pulse Source Pulse Oximeter Pulse Oximetry (%) 99 Oxygen Delivery Method Room Air Intake Visit Reasons: F/U 6mo Intake Note: Patient presents 6 month follow up for Postherpetic Neuralgia Automatic Beam Warper Tender Required: No Accompanied by: Self / Same As Patient Allergies codeine Allergy (Unknown, Verified 08/06/24 14:46) Gastrointestinal Upset furosemide [Lasix] Allergy (Unknown, Verified 08/06/24 14:46) Anaphylaxis Medication List - Last Reconciled 08/06/24 by LESTER Wells alendronate 70 mg PO QWEEK apixaban (Eliquis) 2.5 mg PO BID azelaic acid 15% 1 appl topical BID calcium carbonate-vitamin D2 600 mg calcium- 200 unit tabs PO cetirizine 10 mg PO DAILY nortriptyline 50 mg PO BEDTIME nystatin-triamcinolone 100,000-0.1 unit/g-% 1 appl topical DAILY pravastatin 20 mg PO DAILY HPI Comments Details: 74-yr-old female presents for f/u visit BUE/BLE paresthesias, facial pain, Raynaud's, post herpetic neuralgia with history of osteoporosis, AFib, CKD, splenic artery infarct, factor V Leiden mutation, Raynaud's, carpal tunnel repair, Dupuytren's repair, HLD, Pt reports she has been tracking her BP as she had an isolated elevated BP- however states she is not sure what the norm is. We gave her a form showing normal BP ranges. Patient continues to be followed by Nephrology Dr. Stuart. She reports increased BLE burning and throbbing pain- occurring at rest. She is wondering if we can do imaging of her entire legs. Patient reports she continues to have: Her feet can feel like they are on fire/burning. BLE legs and feet cramps at night- has to get up and walk them off. Constant bilateral L > R toe numbness. Bilateral hand and feet still become tingling. Fingertips and toes turn red and then purple, especially when it is cold. Restlessness and creepy crawling sensation in her legs- occurs during the day and night.. Legs are usually worse when in cold weather. Bilateral hand weakness, prone to dropping things. Occasional brief right cheek sharp stabbing pain. Occassional mild headaches- responds to Tylenol prn. Occasional dizziness. May use Tylenol ES 1000-1500mg prn at times for the foot pain- unsure if it helps. Compliant w/ Nortriptyline 50mg qhs. Massaging her legs helps some. Previous workup: 04/22/23: BLE EMG/NCS: Normal study. There is no electrodiagnostic evidence for peroneal neuropathy, tibial neuropathy, lumbosacral plexopathy, lumbar radiculopathy, or peripheral neuropathy. 04/05/23, Brain w/wo: IMPRESSION: 1. No acute intracranial pathology. 2. There is a stable collection of CSF in the left CP angle. A similar but smaller collection is seen in the right CP angle. These may represent small arachnoid cysts or could simply represent volume loss. [facility] Medical History GERD (gastroesophageal reflux disease) Depression HLD (hyperlipidemia) Carpal tunnel syndrome Dupuytren contracture Duodenal ulcer Chronic narrow angle glaucoma Raynauds syndrome Fibromyalgia Boucher syndrome Uterine cancer Surgical History History of hysterectomy for cancer History of nasal surgery Family History Father CAD (coronary artery disease) Mother No problems noted. Social History Household Members: Family Alcohol intake: never Patient Tobacco Use Status: Former Tobacco user Physical Exam Vital Signs: Last Vital Signs Pulse 98 08/06/24 14:45 BP 130/70 08/06/24 14:45 Pulse Ox 99 08/06/24 14:45 Oxygen Delivery Method Room Air 08/06/24 14:45 BMI result Body Mass Index 26.7 Const General: cooperative and no acute distress Orientation/consciousness: patient oriented x3 HEENT Head: Yes normocephalic Resp Effort & Inspection: normal respiratory effort and able to speak in complete sentences Neuro Other: Mild left upper extremity postural tremor BLE MS 5/5 BLE skin- mildly discolored, cool to the touch, more pronounced more ditally in gladys toes. General: patient oriented x3, gait normal and CN's II-XI intact bilaterally Cognition (Neuro): normal cognition Motor exam (neuro): 5/5 motor strength present throughout Psych Appearance: grossly normal Mental Status: mental status grossly normal Speech and movement: Clear speech present Affect: normal affect Assessment & Plan Assessment & Plan (1) Paresthesia of upper and lower extremities of both sides: Code(s): R20.2 - Paresthesia of skin Category: Medical (2) Raynauds syndrome: Code(s): I73.00 - Raynaud's syndrome without gangrene Category: Medical (3) Vertigo: Code(s): R42 - Dizziness and giddiness Category: Medical (4) Tremor: Code(s): R25.1 - Tremor, unspecified Category: Medical (5) Restless leg syndrome: Code(s): G25.81 - Restless legs syndrome Category: Medical Plan For BUE/BLE paresthesias, restless leg symptoms, Raynaud's, as well as symptoms of dry eyes/dry mouth: Interval B12 and folate within normal limits. Previous BLE EMG/NCS: Normal study. Check XR gladys feet and ankles. Check labs to round out workup. * Upon review, consider weaning off of Nortriptyline as this may exacerbate RLS s/s, and re-trying Gabapentin, or trying pregabalin or Horizant. Previously reviewed OTC treatments for BLE restless leg and paresthesia s/s- compression boots, compression socks- such as hiking/running socks, RLS/neuropathy creams/lotions, stretching prior to bedtime. Previous trials: nifedipine ER 30 mg daily- was not effective. Brain MRI w/wo report and images: Stable collection of CSF in the left CP angle. A similar but smaller collection is seen in the right CP angle. Likely small arachnoid cysts or could simply represent volume loss. Monitor dizziness, headache and tinnitus clinically. If these worsen, consider follow-up brain MRI and consider neurosurgeon referral. Monitor tremor clinically. Orders: Orders CHENTE Reflex Titer and Pattern Today D64.9 - Anemia, unspecified, D68.51 - Activated protein C resistance, I73.00 - Raynaud's syndrome without gangrene, R20.2 - Paresthesia of skin, R25.1 - Tremor, unspecified, R53.1 - Weakness Rheumatoid Factor Today D64.9 - Anemia, unspecified, D68.51 - Activated protein C resistance, I73.00 - Raynaud's syndrome without gangrene, R20.2 - Paresthesia of skin, R25.1 - Tremor, unspecified, R53.1 - Weakness Complement C3 Today D64.9 - Anemia, unspecified, D68.51 - Activated protein C resistance, I73.00 - Raynaud's syndrome without gangrene, R20.2 - Paresthesia of skin, R25.1 - Tremor, unspecified, R53.1 - Weakness Complement C4 Today D64.9 - Anemia, unspecified, D68.51 - Activated protein C resistance, I73.00 - Raynaud's syndrome without gangrene, R20.2 - Paresthesia of skin, R25.1 - Tremor, unspecified, R53.1 - Weakness Complete Blood Count Auto Diff Today D64.9 - Anemia, unspecified, D68.51 - Activated protein C resistance, I73.00 - Raynaud's syndrome without gangrene, R20.2 - Paresthesia of skin, R25.1 - Tremor, unspecified, R53.1 - Weakness TSH reflex Free T4 Today D64.9 - Anemia, unspecified, D68.51 - Activated protein C resistance, I73.00 - Raynaud's syndrome without gangrene, R20.2 - Paresthesia of skin, R25.1 - Tremor, unspecified, R53.1 - Weakness XR Foot Gladys 2V Today M25.579 - Pain in unspecified ankle and joints of unspecified foot, M79.673 - Pain in unspecified foot, R20.2 - Paresthesia of skin IRON PROFILE Today D64.9 - Anemia, unspecified, D68.51 - Activated protein C resistance, I73.00 - Raynaud's syndrome without gangrene, R20.2 - Paresthesia of skin, R25.1 - Tremor, unspecified, R53.1 - Weakness Ferritin Today D64.9 - Anemia, unspecified, D68.51 - Activated protein C resistance, I73.00 - Raynaud's syndrome without gangrene, R20.2 - Paresthesia of skin, R25.1 - Tremor, unspecified, R53.1 - Weakness C Reactive Protein Today D64.9 - Anemia, unspecified, D68.51 - Activated protein C resistance, I73.00 - Raynaud's syndrome without gangrene, R20.2 - Paresthesia of skin, R25.1 - Tremor, unspecified, R53.1 - Weakness Anti DNA DS Antibody Today D64.9 - Anemia, unspecified, D68.51 - Activated protein C resistance, I73.00 - Raynaud's syndrome without gangrene, R20.2 - Paresthesia of skin, R25.1 - Tremor, unspecified, R53.1 - Weakness Sjogren's Antibodies Today D64.9 - Anemia, unspecified, D68.51 - Activated protein C resistance, I73.00 - Raynaud's syndrome without gangrene, R20.2 - Paresthesia of skin, R25.1 - Tremor, unspecified, R53.1 - Weakness Comprehensive Met. Panel Today D64.9 - Anemia, unspecified, D68.51 - Activated protein C resistance, I73.00 - Raynaud's syndrome without gangrene, R20.2 - Paresthesia of skin, R25.1 - Tremor, unspecified, R53.1 - Weakness Vitamin B6 Today D64.9 - Anemia, unspecified, D68.51 - Activated protein C resistance, I73.00 - Raynaud's syndrome without gangrene, R20.2 - Paresthesia of skin, R25.1 - Tremor, unspecified, R53.1 - Weakness Vitamin D 25-OH (D2 and D3) Today D64.9 - Anemia, unspecified, D68.51 - Activated protein C resistance, I73.00 - Raynaud's syndrome without gangrene, R20.2 - Paresthesia of skin, R25.1 - Tremor, unspecified, R53.1 - Weakness Magnesium Today D64.9 - Anemia, unspecified, D68.51 - Activated protein C resistance, I73.00 - Raynaud's syndrome without gangrene, R20.2 - Paresthesia of skin, R25.1 - Tremor, unspecified, R53.1 - Weakness Creatine Kinase Total Today D64.9 - Anemia, unspecified, D68.51 - Activated protein C resistance, I73.00 - Raynaud's syndrome without gangrene, R20.2 - Paresthesia of skin, R25.1 - Tremor, unspecified, R53.1 - Weakness XR Ankle Gladys min 3V Today M25.579 - Pain in unspecified ankle and joints of unspecified foot, M79.673 - Pain in unspecified foot, R20.2 - Paresthesia of skin Coding Level of Care Code Est Pt Level 4 (30140) Diagnoses Paresthesia of upper and lower extremities of both sides R20.2 Raynauds syndrome I73.00 Vertigo R42 Tremor R25.1 Restless leg syndrome G25.81
== END 2024-08-06 15:32 | disposition home or self-care (01) ==
LOC: HO.HSMS 14:12
PROVIDERS: PCP Nurse Practitioner Gerontology; Visit Provider Nurse Practitioner Family
DX: R20.2 Paresthesia of skin (principal); I73.00 Raynaud's syndrome without gangrene; R42 Dizziness and giddiness; R25.1 Tremor, unspecified; G25.81 Restless legs syndrome
CPT/HCPCS: 99214

== ENCOUNTER → 2024-08-06 14:11 | Outpatient (BNVA) | payer MEDICARE, SELFPAY | PROVIDERS: PCP Nurse Practitioner Gerontology; Visit Provider Nurse Practitioner Family | DX: R20.2 Paresthesia of skin (principal); R42 Dizziness and giddiness; R25.1 Tremor, unspecified; G25.81 Restless legs syndrome; I73.00 Raynaud's syndrome without gangrene | CPT/HCPCS: 99212 ==

== ENCOUNTER 2024-08-07 11:15 | Outpatient (REF) | payer MEDICARE, SELFPAY ==
--- NOTE | ~2024-08-07 | XR_ITS ---
CLINICAL HISTORY: R20.2 - Paresthesia of skin Left foot three views Comparison: None Findings: No acute fracture or dislocation identified. Mild degenerative change multiple joints. No radiopaque foreign body noted. Impression: No acute bony abnormality Right foot three views Comparison: None Findings: No acute fracture or dislocation identified. Mild degenerative change multiple joints. No radiopaque foreign body noted. Impression: No acute bony abnormality This document has been electronically signed by: Ken Spencer MD on 08/07/2024 19:14:38
--- NOTE | ~2024-08-07 | XR_ITS ---
CLINICAL HISTORY: R20.2 - Paresthesia of skin Right ankle three views Comparison: None Findings: No acute fracture or dislocation identified. No acute focal bony abnormality. No radiopaque foreign body noted. Impression: No acute bony abnormality left ankle three views Comparison: None Findings: No acute fracture or dislocation identified. No acute focal bony abnormality. No radiopaque foreign body noted. Impression: No acute bony abnormality This document has been electronically signed by: Ken Spencer MD on 08/07/2024 19:14:26
[2024-08-07 11:42] LABS: MANUAL DIFF FLAG NO
[2024-08-07 12:17] LABS: Basophils Absolute Auto 0.1 X10*3/uL (0.0-0.2); Basophils Percent Auto 0.8 % (0-2); Eosinophils Absolute Auto 0.2 X10*3/uL (0.0-0.4); Hematocrit 43.8 % (37.0-47.0); Hemoglobin 14.4 g/dl (12.0-16.0); Imm Gran Abs Auto 0.01 X10*3/uL (0.00-0.03); Imm Gran Pct Auto 0.2 % (0.0-0.4); Lymphocytes Absolute Auto 1.9 X10*3/uL (1.2-4.9); Lymphocytes Percent Auto 29.8 % (20-40); Mean Corpuscular HGB Conc 32.9 g/dl (31.0-35.0); Mean Corpuscular Hemoglobin 30.8 pg (27.0-33.0); Mean Corpuscular Volume 93.6 fL (80.0-98.0); Mean Platelet Volume 10.7 fL (9.4-12.3); Monocytes Absolute Auto 0.6 X10*3/uL (0.1-1.2); Neutrophils Absolute Auto 3.6 x10*3/uL (2.0-8.3); Neutrophils Percent Auto 57.2 % (45-73); Platelet Count 266 X10*3/uL (160-400); Red Blood Count 4.68 X10*6/uL (4.20-5.50); Red Cell Distribution Width 14.1 % (11.0-16.0); White Blood Count 6.3 X10*3/uL (4.8-10.8)
--- OUTSIDE RECORDS SUMMARY | 2024-08-07 12:43 | XMS_ITS | Clinical Summary ---
Author Organization [facility] Address [address] [place] [address] Care Team Providers Care Filler Feeder Name Role Phone Unavailable Primary Care Provider Unavailabl e Encounters Date Type Department Care Team Description 07/23/2024 Telephone Gastroenterology - [address] [place] [address] Augustin Jones MD from Last [...]
--- OUTSIDE RECORDS SUMMARY | 2024-08-07 12:43 | XMS_ITS | Clinical Summary ---
Author Organization [facility] Address [address] [address] Phone Care Team Providers Care Sheriff Officer Name Role Phone Cheryl Mccain NP Primary Care Provider [phone] Allergies Active Allergy Reactions Criticality Noted Date [...] Office Visit [facility] [address] [facility] [address] [place] [phone] Doe Sommer MD Stage 3a chronic kidney disease (HCC) (Primary Dx); Boucher syndrome; Factor V Leiden mutation (HCC); Anticoagulant therapy; Osteoporosis 06/05/2024 Orders Only [facility] [address] [phone] Doe Sommer MD Stage 3a chronic kidney [...] Office Visit [facility] [address] [phone] Doe Sommer MD [address] [phone] Health Maintenance Due Date Last [...] EST) Creatinine, Ur 57.8 Not Estab. mg/dL [facility] Protein, Ur 12.6 Not Estab. mg/dL [facility] Urine Protein/Creati nine Ratio 218(H) 0 - 200 mg/[facility] 1:25 PM EST 05/28/2024 Doe Sommer MD LAB URINE ORDERABLES Final Re sult [facility] [address] [place] [address] * Vitamin D 25 Hydroxy (05/28/2024 1:25 PM EST) Vitamin D, 25-OH, Total 52.7 30.0 - 100.0 ng/mL [facility] Comment: Vitamin D deficiency has been defined by the [place] of [employer] and an Endocrine Society practice guideline as a level of serum 25-OH vitamin D less than 20 ng/mL (1,2). The Endocrine Society went on to further define vitamin D insufficiency as a level between 21 and 29 ng/mL (2). 1. IOM ([place] of [employer]). 2010. Dietary reference ?? intakes for calcium and D. [place]: The ?? National Academies Press. 2. Cristobal MF, Svetlana NC, Ashleigh BAUTISTA, et al. ?? Evaluation, treatment, and prevention of vitamin D ?? deficiency: an Endocrine Society clinical practice ?? guideline. JCEM. 2010; 96(7):1911-30. 05/28/2024 1:25 PM EST 05/28/2024 Doe Sommer MD LAB BLOOD ORDERABLES Final Re sult [facility] [address] [place] [address] * CBC and Differential (05/28/2024 1:25 PM EST) [facility] WBC 7.1 3.4 - 10.8 x10E3/uL [facility] RBC 4.74 3.77 - 5.28 x10E6/uL [facility] Hemoglobin 14.7 11.1 - 15.9 g/dL [facility] Hematocrit 44.2 34.0 - 46.6 % [facility] MCV 93 79 - 97 fL [facility] MCH 31.0 26.6 - 33.0 pg [facility] MCHC 33.3 31.5 - 35.7 g/dL [facility] RDW 13.0 11.7 - 15.4 % [facility] Platelets 250 150 - 450 x10E3/uL [facility] Neutrophils Relative 53 Not Estab. % [facility] Lymphocytes Relative 35 Not Estab. % [facility] Monocytes 9 Not Estab. % [facility] Eosinophils Relative 2 Not Estab. % [facility] Basophils Relative 1 Not Estab. % [facility] Neutrophils Absolute 3.8 1.4 - 7.0 x10E3/uL [facility] Lymphocytes Absolute 2.5 0.7 - 3.1 x10E3/uL [facility] Monocytes Absolute 0.6 0.1 - 0.9 x10E3/uL [facility] Eosinophils Absolute 0.1 0.0 - 0.4 x10E3/uL [facility] Basophils Absolute 0.1 0.0 - 0.2 x10E3/uL [facility] Immature Granulocytes 0 Not Estab. % [facility] Immature Grans (Absolute) 0.0 0.0 - 0.1 x10E3/uL [facility] 05/28/2024 1:25 PM EST 05/28/2024 Doe Sommer MD LAB BLOOD ORDERABLES Final Re sult [facility] [address] [place] [address] * Uric Acid (05/28/2024 1:25 PM EST) Pathologist [facility] Uric Acid 4.7 3.1 - 7.9 mg/dL [facility] [place] Comment:Therapeutic target f or gout patients: <6.0 05/28/2024 1:25 PM EST 05/28/2024 Doe Sommer MD LAB BLOOD ORDERABLES Final Re sult Performing Organization Address [facility] Co de Phone Number [facility] [address] [place] [address] * Phosphorus (05/28/2024 1:25 PM EST) Phosphorus 3.8 3.0 - 4.3 mg/dL [facility] 05/28/2024 1:25 PM EST 05/28/2024 Doe Sommer MD LAB BLOOD ORDERABLES Final Re sult Performing Organization Address City[facility] Co de Phone Number [facility] [address] [place] [address] * PTH, Intact (05/28/2024 1:25 PM EST) Pathologist [facility] PTH 41 15 - 65 pg/mL [facility] 05/28/2024 1:25 PM EST 05/28/2024 us Doe Sommer MD LAB BLOOD ORDERABLES Final Re sult Performing Organization Address City/[facility]/ZIP Co de Phone Number [facility] [address] [place] [address] * Magnesium (05/28/2024 1:25 PM EST) [facility] Magnesium 2.3 1.6 - 2.3 mg/dL [facility] 05/28/2024 1:25 PM EST 05/28/2024 Doe Sommer MD LAB BLOOD ORDERABLES Final Re sult Performing Organization Address [facility] Co de Phone Number [facility] [address] [place] [address] * (ABNORMAL) Comprehensive Metabolic Panel (05/28/2024 1:25 PM EST) [facility] Glucose 84 70 - 99 mg/dL [facility] BUN 22 8 - 27 mg/dL [facility] Creatinine 1.17(H) 0.57 - 1.00 mg/dL [facility] eGFR CKD-EPI CR 2020 48(L) >59 mL/min/1.7 3 [facility] BUN/Creatinine Ratio 19 12 - 28 [facility] Sodium 140 134 - 144 mmol/L [facility] Potassium 5.1 3.5 - 5.2 mmol/L [facility] Chloride 102 96 - 106 mmol/L [facility] Bicarbonate (CO2) 23 20 - 29 mmol/L [facility] Calcium 10.3 8.7 - 10.3 mg/dL [facility] Total Protein 6.8 6.0 - 8.5 g/dL [facility] Albumin 4.3 3.8 - 4.8 g/dL [facility] Globulin 2.5 1.5 - 4.5 g/dL [facility] Total Bilirubin 0.5 0.0 - 1.2 mg/dL [facility] Alkaline Phosphatase 72 44 - 121 IU/L [facility] AST (SGOT) 24 0 - 40 IU/L [facility] ALT (SGPT) 26 0 - 32 IU/L [facility] 05/28/2024 1:25 PM EST 05/28/2024 us Doe Sommer MD LAB BLOOD ORDERABLES Final Re sult [facility] [address] [place] [address] from Last 3 Months Insurance [facility] Medicare Medicare [facility] Care Teams Sheriff Officer Relationship Specialty Start Date End Date Cheryl Mccain NP [address] [place] [address] PCP - General Nurse Practitioner 04/06/23
[2024-08-07 12:49] LABS: Alanine Aminotransferase 32 U/L (0-31); Albumin Level 4.1 g/dL (3.5-5.0); Alkaline Phosphatase 64 U/L (39-117); Anion Gap 15 (12-20); Aspartate Amino Transferase 29 U/L (5-31); Bilirubin Total 0.7 mg/dL (0.0-1.0); Blood Urea Nitrogen 14 mg/dL (9-16); C Reactive Protein 0.17 mg/dL (< or = 0.50); Calcium 9.4 mg/dL (8.4-10.2); Carbon Dioxide 25 mmol/L (22-29); Chloride 104 mmol/L (96-108); Estimated Glomerular Filt Rate 42; Glucose Random 98 mg/dL (60-115); Iron 96 mcg/dL (30-160); Magnesium 2.2 mg/dL (1.6-2.6); Percent Iron Saturation 30 % (15-50); Potassium 4.6 mmol/L (3.3-5.1); Sodium 139 mmol/L (135-145); Total Iron Binding Capacity 319 mcg/dL (228-428); Total Protein 7.1 g/dL (6.5-8.0); Unsaturated Iron Binding 223 ug/dL
[2024-08-07 12:59] LABS: Ferritin 100 ng/mL (10-250); TSH reflex Free T4 3.15 uIU/mL (0.32-4.0)
[2024-08-07 15:39] LABS: Rheumatoid Factor 13.1 IU/mL (<15.0)
[2024-08-08 12:03] LABS: Anti Nuclear Antibody Screen NEGATIVE (NEGATIVE)
[2024-08-08 20:29] LABS: Complement C3 152 mg/dL (83-193)
[2024-08-10 07:24] LABS: Anti DNA DS Antibody <1 IU/mL; Antibody to SS-A Antigen <1.0 NEG AI (<1.0 NEG); Antibody to SS-B Antigen <1.0 NEG AI (<1.0 NEG)
[2024-08-12 23:34] LABS: Vitamin D 25-OH, D2 <4 ng/mL; Vitamin D 25-OH, D3 59 ng/mL; Vitamin D 25-OH, Total 59 ng/mL (30-100)
== END 2024-08-07 11:16 | disposition home or self-care (01) ==
LOC: HO.LAB 11:15
PROVIDERS: PCP Nurse Practitioner Gerontology; Visit Provider Nurse Practitioner Family
DX: D68.51 Activated protein C resistance (principal); I73.00 Raynaud's syndrome without gangrene; R20.2 Paresthesia of skin; D64.9 Anemia, unspecified; R25.1 Tremor, unspecified; R53.1 Weakness; M79.673 Pain in unspecified foot; M25.579 Pain in unspecified ankle and joints of unspecified foot
CPT/HCPCS: 36415; 73610; 73620; 80053; 82306; 82550; 82728; 83540; 83735; 84207; 84443; 85025; 86038; 86140; 86160; 86225; 86235; 86431

== ENCOUNTER → 2024-08-07 11:46 | Outpatient (BNV) | payer MEDICARE, SELFPAY | PROVIDERS: PCP Nurse Practitioner Gerontology; Visit Provider Radiology Diagnostic Radiology | DX: R20.2 Paresthesia of skin (principal); M15.0 Primary generalized (osteo)arthritis | CPT/HCPCS: 73610; 73620 ==